=== PATIENT | female | born 1940 | race Hispanic/Latino ===

== ENCOUNTER → 2021-08-28 | Outpatient (CLI) | payer OTHER ==
[~2021-08-28] MED LIST: ASPI-1197 PO; ATOR40TA71 PO; CHOL50009 PO; ESOM40CA PO; IOHEXOL 350 MG/ML 100ML INFUS..BTL IV ONE; KRIL1CAP19 PO; METO-408 PO; MONT-39 PO; OXYB10TA30 PO
== END | disposition home or self-care (01) ==
LOC: RAH 08-18 08:29
PROVIDERS: ATTEND Family Medicine
DX: R10.32 Left lower quadrant pain (principal); Z90.411 Acquired partial absence of pancreas; Z90.5 Acquired absence of kidney
CPT/HCPCS: 74178; Q9967